=== PATIENT | female | born 1990 | race Caucasian/White ===

== ENCOUNTER 2017-09-23 17:55 | Emergency (ER) | payer BC ==
[~2017-09-23] VITALS: Ht 160 cm; Wt 68.0 kg
[2017-09-23 17:57] VITALS: BP 172/76; PULSE 94; RESP 18; TEMP 97.5; O2SAT 94
[2017-09-23] MEDS ORDERED: LO LTAB PO (18:24)
[2017-09-23] MEDS ORDERED: CEFD300C PO (18:24)
[2017-09-23] MEDS ORDERED: PRED50 PO (18:24)
[2017-09-23] MEDS ORDERED: ALBUAER3 INH (18:29)
[2017-09-23] MEDS ORDERED: VENTAER INH (18:29)
--- NOTE | 2017-09-23 18:48 | PD ---
HPI . Cough Chief Complaint: Respiratory Symptoms Time Seen by Provider: 18:13 Travel History International Travel<30 days: No Contact w/Intl Traveler<30days: No Traveled to known affect area: No History of Present Illness HPI This patient presents with the chief complaint of a cough. She was seen at urgent care earlier today and prescribed antibiotics, prednisone and an inhaler. She has used 1 dose of these. She comes in to us now complaining that she is "10 times worse." History Past Medical Histgory Tetanus Vaccination: > 5 Years Social History Alcohol Use: Yes Tobacco Use: No Allergies-Medications (Allergen,Severity, Reaction): Coded Allergies: No Known Allergies (Unverified , 09/23/17) Reported Meds & Prescriptions Reported Meds & Active Scripts Active Reported Proair Hfa 8.5 GM Inh (Albuterol Sulfate) 90 Mcg/Act Aer 1 Puff INH Q4H PRN 108 mcg/actuation Lo Loestrin Fe 1/10 (Norethindrone-Ethinyl Estradiol-Fe) 1-10 Mg-Mcg Tab 1 Tab PO DAILY Prednisone 50 Mg Tab 50 Mg PO DAILY Cefdinir 300 Mg Cap 300 Mg PO BID Review of Systems Except as stated in HPI: all other systems reviewed are Neg Respiratory: Positive: Cough Physical Exam Narrative Vital Signs Date Time Temp Pulse Resp B/P (MAP) Pulse Ox O2 Delivery O2 Flow Rate FiO2 09/23/17 17:57 97.5 94 18 172/76 (108) 94 GENERAL: Awake and alert and in no acute distress. SKIN: warm/dry. HEAD: Normocephalic. Atraumatic. EYES: Pupils equal and round. Extraocular movements are intact. ENT: Mucous membranes pink and moist. NECK: Supple. Full range of motion without pain.. CARDIOVASCULAR: Regular rate and rhythm. Heart sounds are normal. RESPIRATORY: No accessory muscle use. Clear to auscultation. Breath sounds equal bilaterally. MUSCULOSKELETAL: No obvious deformities. Normal muscle tone. NEUROLOGICAL: Awake and alert. No obvious cranial nerve deficits. Motor grossly within normal limits. Normal speech. PSYCHIATRIC: Appropriate mood and affect; insight and judgment normal. Data Data Last Documented VS Vital Signs Date Time Temp Pulse Resp B/P (MAP) Pulse Ox O2 Delivery O2 Flow Rate FiO2 09/23/17 17:57 97.5 94 18 172/76 (108) 94 MDM Medical Screen Exam Complete: Yes Emergency Medical Condition: No Narrative Course This patient presents for a cough. She was seen just a few hours ago at an urgent care and prescribed appropriate medications for bronchitis. Her lungs are clear. She is having no respiratory distress. A medical screening exam was performed: At the time of evaluation the presenting medical condition was determined not to be of an emergent nature. The patient was given the option of receiving additional care, but declined. Patient was given options for additional community resources from which to obtain care. The Patient Has Been advised to seek medical attention for their presenting complaint. The patient has been advised to return to the ER at any time if an emergent condition develops. Primary Impression: Encounter for medical screening examination Condition: Stable Fiorella Ely MD Sep 23, 2017 18:48
== END 2017-09-23 18:56 | disposition left against medical advice (07) ==
LOC: NEPD 17:55
DX: R05 Cough (principal)
CPT/HCPCS: 99281